=== PATIENT | male | born 1995 | race American Indian/Alaskan Native ===

== ENCOUNTER 2018-01-27 20:46 | Emergency (ER) | payer SELFPAY ==
[2018-01-27 21:04] VITALS: BP 119/74
--- NOTE | 2018-01-27 21:49 | XRay Report ---
FINAL REPORT PROCEDURE: XR HAND 3+V RT TECHNIQUE: RIGHT hand radiographs, AP, lateral, and oblique views. CPT 04462-CE HISTORY: Punched wall Rt hand swollen COMPARISON: No prior studies are available for comparison. FINDINGS: Fracture (s) and/or Dislocation(s): None . Alignment: Normal . Joint space(s): Normal . Soft tissues: Normal . Bone mineralization: Normal . Foreign bodies: None . IMPRESSION: Normal Examination .
[2018-01-27] MEDS ORDERED: TENIVAC IM ONE (23:25)
--- NOTE | 2018-01-27 23:27 | Emergency Department Report ---
HPI - General Chief Complaint: Extremity Injury, Upper Time Seen by Provider: 01/27/18 23:24 - HPI HPI: 23-year-old -[place] male, who is right-hand dominant, presents to the emergency department with pain and swelling to the right hand and especially over the knuckles of the index, middle, ring and pinky fingers. He also has some pain down the ulnar side of the hand. Patient punched a wall this evening out of anger. He has some decreased range of motion secondary to his pain. He denies any past medical history. He has not taken anything for his symptoms prior to presentation. ED Past Medical Hx - Past Medical History Previous Medical History?: No - Surgical History Past Surgical History?: No - Social History Smoking Status: Former Smoker Substance Use Type: Alcohol - Medications Home Medications: Home Medications Medication Instructions Recorded Confirmed Last Taken Type Ibuprofen [Motrin] 800 mg PO Q8H PRN #30 tablet 10/29/14 Unknown Rx Penicillin Vk [Veetids TAB] 500 mg PO BID #20 tablet 10/29/14 Unknown Rx HYDROcodone/APAP 5-325 [[place] 1 each PO Q8H PRN #8 tablet 01/28/18 Unknown Rx 5/325] ED Review of Systems ROS: Stated complaint: HAND PAIN Other details as noted in HPI Comment: All other systems reviewed and negative Constitutional: denies: chills, fever Eyes: denies: eye pain, eye discharge, vision change ENT: denies: ear pain, throat pain Respiratory: denies: cough, shortness of breath, wheezing Cardiovascular: denies: chest pain, palpitations Gastrointestinal: denies: abdominal pain, nausea, diarrhea Genitourinary: denies: urgency, dysuria Musculoskeletal: joint swelling, arthralgia. denies: back pain Skin: denies: rash, lesions Neurological: denies: headache, weakness, paresthesias Physical Exam - Physical Exam Vital Signs: Vital Signs 01/27/18 20:57 Temperature 98.9 F Pulse Rate 78 Respiratory 14 Rate Blood Pressure 119/74 O2 Sat by Pulse 94 Oximetry Physical Exam: GENERAL: The patient is well-developed well-nourished. HENT: Normocephalic. Atraumatic. Patient has moist mucous membranes. EYES: Extraocular motions are intact. NECK: Supple. Trachea is midline. CHEST/LUNGS: Clear to auscultation. There is no respiratory distress noted. HEART/CARDIOVASCULAR: Regular. There is no tachycardia. There is no murmur. ABDOMEN: Abdomen is soft, nontender. Patient has normal bowel sounds. There is no abdominal distention. SKIN: There is some mild nonpitting swelling to the dorsum of the right hand. There are small abrasions to the knuckles of the right hand. No current bleeding. No signs or symptoms of infection. NEURO: The patient is awake, alert, and oriented. The patient is cooperative. The patient has no focal neurologic deficits. The patient has normal speech. MUSCULOSKELETAL: Tenderness to palpation to the right hand and with movement of the fingers. Radial pulse +2 over 4 to the affected right wrist. Cap refill less than 2 seconds. Decreased range of motion of the fingers and hand secondary to pain. ED Course Vital Signs 01/27/18 20:57 Temperature 98.9 F Pulse Rate 78 Respiratory 14 Rate Blood Pressure 119/74 O2 Sat by Pulse 94 Oximetry ED Medical Decision Making - Radiology Data Radiology results: image reviewed interpreted by me: X-ray of the right hand does not show any fracture, dislocation or any acute process. - Medical Decision Making Patient punched a wall earlier in the day and has pain and abrasions and some swelling to the right hand. X-ray does not show any fracture or dislocation. He was placed in a splint and given follow-up with an orthopedist. He will return to the ER with any worsening of his symptoms or any acute distress. - Differential Diagnosis boxer's fracture, contusion, sprain, strain, abrasion Critical Care Time: No Critical care attestation.: If time is entered above; I have spent that time in minutes in the direct care of this critically ill patient, excluding procedure time. ED Disposition Clinical Impression: Right hand pain Abrasion hand Qualifiers: Encounter type: initial encounter Laterality: right Qualified Code(s): S60.511A - Abrasion of right hand, initial encounter Disposition: TO HOME OR SELFCARE Is pt being admited?: No Condition: Stable Instructions: Contusion in Adults (ED), Arthralgia (ED) Additional Instructions: Please follow up with an orthopedist in the next few days regarding her right hand pain. I would remain in the splint until that time. Return to the emergency Department with any worsening of her symptoms or any acute distress. The abrasions on her knuckles can be cleaned with soap and water but should then be kept dry. Return to the emergency department or see a health customer care assistant if he starts see signs or symptoms of infection. You have been prescribed a medication that is sedating and therefore should not be taken prior to driving, working, and responsible for children and in no way should be mixed with alcohol of any quantity. Prescriptions: HYDROcodone/APAP 5-325 [[place] 5/325] 1 each PO Q8H PRN #8 tablet PRN Reason: Pain Referrals: SABAS TAYLOR MD [Staff Physician] - 3-5 Days [facility] [Provider Group] - 3-5 Days Time of Disposition: 00:46
== END 2018-01-28 00:50 | disposition home or self-care (01) ==
LOC: ED 20:46
DX: S60.511A Abrasion of right hand, initial encounter (principal); Z87.891 Personal history of nicotine dependence; W22.01XA Walked into wall, initial encounter; Y93.89 Activity, other specified; Y92.89 Other specified places as the place of occurrence of the external cause; Y99.8 Other external cause status
CPT/HCPCS: 90471; 90714; 99283

== ENCOUNTER 2020-09-13 14:38 | Emergency (ER) | payer SELFPAY ==
[2020-09-13 15:13] VITALS: BP 145/88
--- NOTE | 2020-09-13 16:08 | Emergency Department Report ---
ED ENT HPI - General Chief complaint: Dental/Oral Stated complaint: SWOLLEN RT JAW Time Seen by Provider: 09/13/20 15:58 Source: patient Mode of arrival: Ambulatory Limitations: No Limitations - History of Present Illness Initial comments: 25-year-old male with no significant past medical history presents to the ER today complaint of right lower dental pain, and right lower jaw swelling. Patient states that the pain started about 2 days ago, and then this morning woke up with swelling to his right lower jaw. States that he took a Tylenol last night without much relief of his pain. He denies any injury. He denies any difficulty swallowing, trismus or drooling. He denies any fever or chills. MD complaint: tooth pain, other (Jaw swelling) -: Gradual (2 days ago) - Related Data Previous Rx's Medication Instructions Recorded Last Taken Type Acetaminophen/Codeine [Tylenol 1 tab PO Q4HR PRN #12 tablet 09/13/20 Unknown Rx /Codeine # 3 tab] Clindamycin [Clindamycin CAP] 300 mg PO Q6H #40 capsule 09/13/20 Unknown Rx Ibuprofen [Motrin] 800 mg PO Q8HR PRN #30 tablet 09/13/20 Unknown Rx Allergies Allergy/AdvReac Type Severity Reaction Status Date / Time No Known Allergies Allergy Verified 10/29/14 21:57 ED Dental HPI - General Chief complaint: Dental/Oral Stated complaint: SWOLLEN RT JAW Time Seen by Provider: 09/13/20 15:58 Source: patient Mode of arrival: Ambulatory Limitations: No Limitations - Related Data Previous Rx's Medication Instructions Recorded Last Taken Type Acetaminophen/Codeine [Tylenol 1 tab PO Q4HR PRN #12 tablet 09/13/20 Unknown Rx /Codeine # 3 tab] Clindamycin [Clindamycin CAP] 300 mg PO Q6H #40 capsule 09/13/20 Unknown Rx Ibuprofen [Motrin] 800 mg PO Q8HR PRN #30 tablet 09/13/20 Unknown Rx Allergies Allergy/AdvReac Type Severity Reaction Status Date / Time No Known Allergies Allergy Verified 10/29/14 21:57 ED Review of Systems ROS: Stated complaint: SWOLLEN RT JAW Other details as noted in HPI Comment: All other systems reviewed and negative Constitutional: denies: chills, fever ENT: dental pain Respiratory: denies: cough, shortness of breath, wheezing Cardiovascular: denies: chest pain, palpitations Musculoskeletal: denies: back pain, joint swelling, arthralgia Skin: denies: rash, lesions Neurological: denies: headache, weakness, paresthesias ED Past Medical Hx - Past Medical History Previous Medical History?: No - Social History Smoking Status: Never Smoker Substance Use Type: None - Medications Home Medications: Home Medications Medication Instructions Recorded Confirmed Last Taken Type Acetaminophen/Codeine [Tylenol 1 tab PO Q4HR PRN #12 tablet 09/13/20 Unknown Rx /Codeine # 3 tab] Clindamycin [Clindamycin CAP] 300 mg PO Q6H #40 capsule 09/13/20 Unknown Rx Ibuprofen [Motrin] 800 mg PO Q8HR PRN #30 tablet 09/13/20 Unknown Rx ED Physical Exam - General Limitations: No Limitations General appearance: alert, in no apparent distress - Head Head exam: Present: atraumatic, normocephalic, normal inspection - Eye Eye exam: Present: normal appearance, PERRL, EOMI Pupils: Present: normal accommodation - ENT ENT exam: Present: normal exam, normal orophraynx, mucous membranes moist, other (Dental abscess associated with tooth #30 right lower jaw; significant decay of the tooth all the way to the gum. Mod swelling lower jaw. Very tenderness to palpation. No cellulitis, no trismus, no drooling. ) ED Course Vital Signs 09/13/20 15:10 Temperature 98.9 F Pulse Rate 88 Respiratory 18 Rate Blood Pressure 145/88 O2 Sat by Pulse 100 Oximetry Critical care attestation.: If time is entered above; I have spent that time in minutes in the direct care of this critically ill patient, excluding procedure time. ED Disposition Clinical Impression: Abscess, dental Disposition: [id number] TO HOME OR SELFCARE Is pt being admited?: No Does the pt Need Aspirin: No Condition: Stable Instructions: Dental Abscess Additional Instructions: Take the antibiotics and the pain medication prescribed as directed. You can do warm salt water rinses as often as possible to help. Follow-up with the dentist next week. Return to ER if your symptoms changes or worsens in any way. Prescriptions: Clindamycin [Clindamycin CAP] 300 mg PO Q6H #40 capsule Ibuprofen [Motrin] 800 mg PO Q8HR PRN #30 tablet PRN Reason: Pain , Severe (7-10) Acetaminophen/Codeine [Tylenol /Codeine # 3 tab] 1 tab PO Q4HR PRN #12 tablet PRN Reason: Pain Referrals: JOAN CISNEROS MD [Staff Physician] - 3-5 Days Time of Disposition: 16:09
== END 2020-09-13 16:38 | disposition home or self-care (01) ==
LOC: ED 14:38
DX: K04.7 Periapical abscess without sinus (principal); Z79.899 Other long term (current) drug therapy
CPT/HCPCS: 99281